=== PATIENT | male | born 1990 | race Caucasian/White ===

== ENCOUNTER 2020-03-17 21:14 | Emergency (ER) | payer OTHER, SELFPAY ==
--- NOTE | ~2020-03-17 | CT_ITS ---
EXAMINATION: CT abdomen pelvis wo con DATE: 03/17/2020 21:57 INDICATION: Right flank pain TECHNIQUE: Computed tomography (CT) of the abdomen and pelvis was performed without intravenous contr ast. Automated exposure control and iterative reconstruction technique were employed. The dose-length product was 645.23 mGy-cm. COMPARISON: None FINDINGS: Lung bases are clear. Heart size is normal. No pericardial or pleural effusion. Liver, gallbladder, s pleen, pancreas, bilateral adrenal glands and kidneys are normal. 2 mm stone at the distal left urete r approximately 1 cm from the ureterovesicular junction. No hydronephrosis. Bladder is normal. There is mild colonic diverticulosis with a sigmoid predominance. There is no adjacent inflammatory change to suggest diverticulitis. Small bowel and appendix are normal. No free intraperitoneal gas or fluid. No pathologically enlarged abdominal or pelvic lymphadenopathy. Bones are unremarkable. IMPRESSION: 1. 2 mm stone at the distal right ureter with no hydronephrosis. Reviewed, dictated and finalized at location A.
[2020-03-17 21:16] VITALS: BP 142/80; PULSE 80; RESP 20; TEMP 36.8; O2SAT 98
--- NOTE | 2020-03-17 21:57 | ED.ABDPAIN ---
HPI - Abdominal Pain General Chief Complaint: Abdominal Pain Stated Complaint: kidney pain Time Seen by Provider: 03/17/20 21:20 History of Present Illness HPI narrative: Patient is a 29-year-old male who presents ER with sudden onset right-sided flank pain. Has history of kidney stone 6 years ago. Pain was sharp and radiating to his right testicle. It gave him some nausea as well. He is taken ibuprofen and pain has subsided. No hematuria dysuria. Related Data Allergies Allergy/AdvReac Type Severity Reaction Status Date / Time No Known Allergies Allergy Verified 03/17/20 22:49 Review of Systems Review of Systems: All systems reviewed & are unremarkable except as noted in HPI and below Constitutional: Constitutional: Denies chills and Denies fever(s) Gastrointestinal: Gastrointestinal: Reports abdominal pain, Reports nausea and Reports vomiting Comments: Flank pain Genitourinary: Genitourinary: Denies dysuria, Reports testicular pain and Denies urinary frequency PMFSH Past Medical History Medical History (Updated 03/17/20 @ 22:49 by Nathan García MD) Kidney stones Surgical History Surgical History (Updated 03/17/20 @ 22:02 by Nathan García MD) No pertinent past surgical history Social History Social History (Updated 03/17/20 @ 22:02 by Nathan García MD) Smoking status: Never smoker Gender identity (if verbalized by the patient): Male Exam Narrative: Exam Narrative: GENERAL: Well-appearing, well-nourished, and in no acute distress. HEAD: Normocephalic, atraumatic. CHEST: Clear to auscultation. No respiratory distress. HEART: Regular rate and rhythm. Normal peripheral pulses. ABDOMEN: Soft, nontender, nondistended, no CVA tenderness. EXTREMITIES: Normal range of motion. No edema. NEURO: Alert and oriented x3. PSYCH: Normal mood and affect. Course Course Emergency Course: Informed of results. Resting comfortably. Discharge home with supportive therapy. Vital Signs Vital signs: Vital Signs Temperature 98.3 F 03/17/20 21:16 Pulse Rate 80 03/17/20 21:16 Respiratory Rate 20 03/17/20 21:16 Blood Pressure 142/80 H 03/17/20 21:16 Pulse Oximetry 98 03/17/20 21:16 Temperature 99.1 F 03/17/20 22:25 Pulse Rate 78 03/17/20 22:25 Respiratory Rate 18 03/17/20 22:25 Blood Pressure 142/91 H 03/17/20 22:25 Pulse Oximetry 100 03/17/20 22:25 MDM - Abdominal Pain Lab Data Labs: Lab Results 03/17/20 Range/Units 22:34 Urine Color Pending Urine Appearance Pending Urine pH Pending Ur Specific [place] Pending Urine Protein Pending Urine Glucose (UA) Pending Urine Ketones Pending Ur Blood (Man) Pending Urine Nitrate Pending Urine Bilirubin Pending Urine Urobilinogen Pending Leukocyte Esterase Rfl Pending Imaging Data Radiologist's impression: ITS Impressions Abdomen/Pelvis CT 03/17/20 22:22 IMPRESSION: 1. 2 mm stone at the distal right ureter with no hydronephrosis. Discharge Plan Discharge Clinical Impression: Ureterolithiasis Patient Disposition: Home, Self-Care Condition: Stable Instructions: Kidney Stones (ED), How to Strain Your Urine (ED) Additional Instructions: You are passing a 2 mm kidney stone. It should pass without issue if you hydrate yourself. Take [place] as needed for pain and Zofran as needed for nausea and vomiting. Return the ER if you cannot control your pain, you cannot keep down food or water, or you have any additional concerns. Prescriptions: New hydrocodone-acetaminophen 5-325 mg tablet 1 tablet PO Q6H PRN (Reason: pain) Qty: 8 RF: 0 ondansetron 4 mg tablet,disintegrating 4 mg PO Q6H PRN (Reason: nausea and vomiting) Qty: 5 RF: 0 Follow-up/Referrals: [facility] [Primary Care Provider] -
[2020-03-17 22:25] VITALS: BP 142/91; PULSE 78; RESP 18; TEMP 37.3; O2SAT 100
--- NOTE | 2020-03-17 22:29 | PC.NURSE ---
Patient up to the bathroom to provide urine at this time.
[2020-03-17 22:59] LABS: Add Urine Microscopic? YES; Appearance Urine Clear (Clear); Bilirubin Urine Negative (Negative); Blood Urine 2+ (Negative); Color Urine Yellow (Yellow); Glucose Urine UA Negative (Negative); Ketones Urine Negative (Negative); Leukocyte Esterase Ur Negative LEU/UL (Negative); Mucus Urine Rare /lpf; Nitrate Urine Negative (Negative); Protein Urine Negative (Negative); RBC Urine 0-2 /hpf (0-2); Specific Grav Ur 1.016 (1.001-1.035); Squamous Epithelial Cell Urine Rare /hpf (Few); Urobilinogen Urine Negative mg/dL (<2.0); WBC Urine 0-3 /hpf
[2020-03-17 23:09] VITALS: BP 140/85; PULSE 79; RESP 16; TEMP 36.9; O2SAT 99
== END 2020-03-17 23:09 | disposition home or self-care (01) ==
PROVIDERS: Emergency Provider Emergency Medicine
DX: N20.1 Calculus of ureter (principal); Z87.442 Personal history of urinary calculi
CPT/HCPCS: 74176; 81001; 99284

== ENCOUNTER 2020-04-16 03:29 | Emergency (ER) | payer OTHER, SELFPAY ==
[2020-04-16] VITALS (21 sets, daily range): BP systolic 100–138; BP diastolic 70–91; PULSE 58–71; RESP 11–19; TEMP 36.9; O2SAT 96–100
--- NOTE | ~2020-04-16 | XR_ITS ---
XR chest 2V DATE: 04/16/2020 04:48 INDICATION: Left chest pain, shortness of breath for 2 to 3 hours TECHNIQUE: PA and lateral views COMPARISON: None FINDINGS: Normal heart size. No hilar or mediastinal enlargement. No pulmonary infiltrate or consolid ation, pleural effusion or pulmonary vascular congestion or pneumothorax. Included skeletal structures are unremarkable. IMPRESSION: Negative chest Reviewed, dictated and finalized at location A. IMPRESSION: Negative chest
--- NOTE | 2020-04-16 03:44 | ECG_ITS ---
Measurements Intervals [place] Rate: 69 P: 51 VT: 182 QRS: 15 QRSD: 84 T: 18 QT: 376 QTc: 403 Interpretive Statements SINUS RHYTHM NORMAL ECG Electronically Signed On 04-16-2020 8:06:19 CDT by Ulises Aviles D.O.
[2020-04-16] MEDS: KETOROLAC 30 MG/ML VIAL (*BKC) IV PUSH (03:52)
--- NOTE | 2020-04-16 03:53 | ED.GENADULT ---
HPI - General Adult General Chief complaint: Chest Pain Stated complaint: CP WITH BREATHING Time Seen by Provider: 04/16/20 03:39 Source: patient Mode of arrival: EMS Limitations: no limitations History of Present Illness HPI narrative: This patient is 29 year old male who presents for evaluation right sternal chest pain. He states he developed right sternal pain 1 hour ago. His pain gradually worsened so he called 911. His pain is worse with breathing and sitting up. He denies any trauma. HE states he was sob initially, but that is likely anxiety. He also reports feeling of heart racing. Denies fever, cough. Radiation: non-radiation Relieving factors: none Related Data Home Medications Medication Instructions Recorded Confirmed No Home Medications 04/16/20 04/16/20 Allergies Allergy/AdvReac Type Severity Reaction Status Date / Time No Known Allergies Allergy Verified 04/16/20 03:50 Review of Systems Review of Systems: All systems reviewed & are unremarkable except as noted in HPI and below Constitutional: Constitutional: Reports chills and Denies fever(s) Cardiovascular: Cardiovascular: Reports chest pain and Reports rapid heart rate Respiratory: Respiratory: Denies cough, Reports dyspnea and Denies wheezing Gastrointestinal: Gastrointestinal: Denies abdominal pain, Denies nausea and Denies vomiting PMFSH Past Medical History Medical History (Updated 04/16/20 @ 06:41 by Neelam Land MD) Kidney stones Surgical History Surgical History (Updated 03/17/20 @ 22:02 by Nathan García MD) No pertinent past surgical history Social History Social History (Updated 03/17/20 @ 22:02 by Nathan García MD) Smoking status: Never smoker Gender identity (if verbalized by the patient): Male Exam Narrative: Exam Narrative: GENERAL: Well-appearing, well-nourished, and in no acute distress. HEAD: Normocephalic, atraumatic EYES: PERRLA and EOMI, conjunctiva clear without discharge THROAT:Mucous membranes moist, Oropharynx normal without erythema, exudate, peritonsillar swelling or fluctuance NECK: Supple, without lymphadenopathy or mass RESPIRATORY: No respiratory distress, Airway patent, Respirations non-labored, Clear to auscultation without rales, rhonchi or wheeze HEART: Regular rate and rhythm. No murmur heard. Normal peripheral pulses. ABDOMEN: Soft, nontender, nondistended, normal active bowel sounds. No masses. No rebound or guarding, No organomegaly. EXTREMITIES: No edema, normal strength with full range of motion. SKIN: Warm, dry, normal color without rash NEURO: Alert and oriented x3. CN 2-12 grossly intact. No focal deficits. PSYCH: Normal mood and affect. Course Reevaluation(s) Reevaluation #1: I Discussed evaluation is unremarkable. He is ready for discharge. Date: 04/16/20 Time: 07:07 Vital Signs Vital signs: Vital Signs Temperature 98.5 F 04/16/20 03:28 Pulse Rate 67 04/16/20 03:28 Respiratory Rate 14 04/16/20 03:28 Blood Pressure 138/91 H 04/16/20 03:28 Pulse Oximetry 100 04/16/20 03:28 Temperature 98.5 F 04/16/20 03:28 Pulse Rate 61 04/16/20 06:30 Respiratory Rate 12 04/16/20 06:30 Blood Pressure 128/86 04/16/20 06:00 Pulse Oximetry 99 04/16/20 06:30 Medical Decision Making Vital Signs Vital Signs: Vital Signs Temperature 98.5 F 04/16/20 03:28 Pulse Rate 67 04/16/20 03:28 Respiratory Rate 14 04/16/20 03:28 Blood Pressure 138/91 H 04/16/20 03:28 Pulse Oximetry 100 04/16/20 03:28 Temperature 98.5 F 04/16/20 03:28 Pulse Rate 61 04/16/20 06:30 Respiratory Rate 12 04/16/20 06:30 Blood Pressure 128/86 04/16/20 06:00 Pulse Oximetry 99 04/16/20 06:30 Lab Data Lab results reviewed: Yes I reviewed the patient's lab results. Result diagrams: 04/16/20 03:55 04/16/20 03:55 Labs: Lab Results 04/16/20 04/16/20 04/16/20 Range/Units 03:55 03:55 03:55 W
[2020-04-16 04:03] LABS: Basophils Percent Auto 0.3 % (0.2-1.2); Eosinophils Absolute Auto 0.1 K/mm3 (0-0.3); Eosinophils Percent Auto 0.7 % (0-4.4); Hematocrit 45.3 % (42.0-52.0); Hemoglobin 14.8 g/dL (14.0-18.0); Immature Granulocyte Absolute 0.03 K/mm3 (0.00-0.031); Immature Granulocyte Percent A 0.4 % (0-0.5); Lymphocytes Percent Auto 25.3 % (18.3-44.2); Mean Corpuscular HGB Conc 32.7 g/dl (32-36); Mean Corpuscular Hemoglobin 28.7 pg (26-34); Mean Corpuscular Volume 87.8 fl (80-100); Mean Platelet Volume 11.6 fl (7.4-10.4); Monocytes Absolute Auto 0.5 K/mm3 (0.1-0.6); Monocytes Percent Auto 6.5 % (2.6-8.5); Neutrophils Percent Auto 66.8 % (45.5-73.1); Platelet Count Result 182 k/mm3 (150-375); Red Blood Count 5.16 M/mm3 (4.6-6.20); Red Cell Distribution Width 12.5 % (11.5-14.5); White Blood Count 7.5 K/mm3 (4.5-10.0)
[2020-04-16 04:14] LABS: INR 1.2; Prothrombin Time 14.4 Seconds (11.1-14.7)
[2020-04-16 04:15] LABS: Anion Gap 9 mmol/L (8-16); Blood Urea Nitrogen 9 mg/dL (9-20); Calcium 9.1 mg/dL (8.4-10.2); Carbon Dioxide 24 mmol/L (22-30); Chloride 104 mmol/L (98-107); Estimated CRCL calculation 120 ml/min; Estimated Glomerular Filt Rate > 60; Glucose 102 mg/dL (75-110); Partial Thromboplastin Time 35.5 SECONDS (22.3-36.8); Potassium 3.6 mmol/L (3.4-5.0); Sodium 137 mmol/L (137-145)
[2020-04-16 04:24] LABS: D Dimer 0.27 ug/mL (<0.48)
[2020-04-16 04:27] LABS: Troponin I < 0.012 ng/mL (0.000-0.034)
[2020-04-16 06:59] LABS: Troponin I < 0.012 ng/mL (0.000-0.034)
== END 2020-04-16 07:18 | disposition home or self-care (01) ==
PROVIDERS: Emergency Provider General Practice; PCP Emergency Medicine
DX: R07.89 Other chest pain (principal); Z87.442 Personal history of urinary calculi
CPT/HCPCS: 36415; 71046; 80048; 84484; 85025; 85380; 85610; 85730; 93005; 96374; 99284; J1885

== ENCOUNTER 2020-04-24 10:38 | Outpatient (CLI) | payer OTHER, SELFPAY ==
--- NOTE | ~2020-04-24 | US_ITS ---
EXAMINATION: US renal BI EXAM DATE: 04/24/2020 11:34 INDICATION: Right flank pain. 2 mm right distal ureteral stone on CT. TECHNIQUE: Multiple grayscale and Doppler images of the kidneys were obtained (by a technologist who performed the scan) and subsequently reviewed. There is no prior study for comparison. FINDINGS: Right kidney: There is normal contour and echogenicity. It measures 9.4 x 4.7 x 5.1 centimeters. Th ere are no focal renal lesions identified. There is no hydronephrosis. Left kidney: There is normal contour and echogenicity. It measures 10.7 x 5.3 x 4.9 centimeters. Th ere are no focal renal lesions identified. There is no hydronephrosis. Bladder unremarkable. IMPRESSION: Sonographically unremarkable kidneys. Reviewed, dictated and finalized at location A.
--- NOTE | ~2020-04-24 | US_ITS ---
EXAMINATION: US scrotum doppler EXAM DATE: 04/24/2020 11:50 INDICATION: Right testicular pain, right scrotal mass. TECHNIQUE: Multiple grayscale and Doppler images of the testicles and scrotum were obtained bilateral ly. There is no prior study for comparison. FINDINGS: Right testicle measures 4.5 x 2.8 x 2.9 cm and is morphologically normal. Low resistance Doppler meghan w confirmed. The epididymis is unremarkable. There is no hydrocele or varicocele. Left testicle measures 4.7 x 2.8 x 3.4. cm and is morphologically normal. Low resistance Doppler meghan w confirmed. The epididymis is unremarkable. There is no hydrocele or varicocele. IMPRESSION: 1. Unremarkable testicular/scrotal ultrasound exam. Reviewed, dictated and finalized at location A.
== END 2020-04-24 10:39 | disposition home or self-care (01) ==
PROVIDERS: PCP Emergency Medicine; Visit Provider Emergency Medicine
DX: N50.819 Testicular pain, unspecified (principal)
CPT/HCPCS: 76775; 76870; 93976

== ENCOUNTER 2020-06-05 16:56 | Outpatient (CLI) | payer OTHER, SELFPAY ==
--- NOTE | ~2020-06-05 | XR_ITS ---
EXAMINATION: XR abdomen/kub 1V DATE: 06/05/2020 17:26 INDICATION: Hematuria. TECHNIQUE: A supine view of the abdomen on 2 radiographs was obtained. COMPARISON: CT dated 03/17/2020 FINDINGS: No stones identified in the abdomen or pelvis. The previously seen 2 mm stone at the distalmost right ureter is not visualized and are too small to be seen on plain radiographs or has passed. Normal bow el gas pattern. Lung bases are clear. Bones are unremarkable. IMPRESSION: 1. Normal study. No evident urolithiasis. Reviewed, dictated and finalized at location A. ECT MANAGER INDUSTRIAL
--- NOTE | ~2020-06-05 | US_ITS ---
EXAMINATION: US thyroid DATE: 06/05/2020 17:25 INDICATION: Thyroid/neck mass. TECHNIQUE: Multiple ultrasound images of the thyroid were obtained. COMPARISON: None. FINDINGS: The right thyroid lobe measures 4.7 x 2.0 x 1.6 cm. The left thyroid lobe measures 4.0 x 1.8 x 1.3 c m. No discrete nodules identified. There is normal echotexture, echogenicity and vascular flow throu ghout the thyroid gland. No pathologically enlarged lymphadenopathy, abnormal masses or fluid collect ions in the parathyroidal soft tissues. IMPRESSION: 1. Normal thyroid ultrasound. Reviewed, dictated and finalized at location A. NGUAL RECEPTIONIST
[2020-06-05 18:34] LABS: Hemoglobin 15.3 g/dL (14.0-18.0); Mean Corpuscular HGB Conc 32.6 g/dl (32-36); Platelet Count Result 207 k/mm3 (150-375); Red Blood Count 5.28 M/mm3 (4.6-6.20); Red Cell Distribution Width 12.9 % (11.5-14.5); White Blood Count 7.7 K/mm3 (4.5-10.0)
[2020-06-05 18:54] LABS: Add Urine Microscopic? YES; Appearance Urine Clear (Clear); Bacteria Urine Trace /hpf; Bilirubin Urine Negative (Negative); Blood Urine 2+ (Negative); Color Urine Straw (Yellow); Glucose Urine UA Negative (Negative); Ketones Urine Negative (Negative); Leukocyte Esterase Ur Negative LEU/UL (NEGATIVE); Mucus Urine Rare /lpf; Nitrate Urine Negative (Negative); Protein Urine Negative (Negative); Specific Grav Ur 1.009 (1.001-1.035); Squamous Epithelial Cell Urine Rare /hpf (Few); Urobilinogen Urine Negative mg/dL (<2.0)
[2020-06-05 19:34] LABS: HIV 1/2 Ab P24 Ag Result Negative (Negative)
[2020-06-06 07:58] LABS: Rapid Plasma Reagin Non-Reactive (NonReactive)
== END 2020-06-05 16:57 | disposition home or self-care (01) ==
LOC: ANHIMG 16:57
PROVIDERS: PCP Emergency Medicine; Visit Provider Emergency Medicine
DX: R31.9 Hematuria, unspecified (principal); R22.1 Localized swelling, mass and lump, neck
CPT/HCPCS: 36415; 74018; 76536; 81001; 85027; 86592; 86703; 87491; 87591; G0432

== ENCOUNTER 2020-06-12 17:06 | Outpatient (CLI) | payer OTHER, SELFPAY ==
--- NOTE | ~2020-06-12 | CT_ITS ---
EXAMINATION: CT soft tissue neck wo con DATE: 06/12/2020 17:33 INDICATION: Painful right neck mass. TECHNIQUE: Computed tomography (CT) of the neck was performed without intravenous contrast. Automated exposure control and iterative reconstruction technique were employed. The dose-length product was 4 90.38 mGy-cm. COMPARISON: Thyroid ultrasound dated 06/05/2020 FINDINGS: Thyroid gland is unremarkable. Submandibular and parotid glands are normal and symmetric. There are scattered normal-sized lymph nodes in the neck, no lymphadenopathy. No masses or abnormal fluid col lections identified. Small calcification at the left lingual tonsil. Orbits are unremarkable. Visuali zed sinuses and mastoid aircells are well aerated. Visualized airway and lung apices are normal. Sup erior mediastinum is unremarkable. Bones are unremarkable. IMPRESSION: 1. Normal neck CT. No pathologically enlarged cervical lymphadenopathy or other abnormal masses or fl uid collections. Reviewed, dictated and finalized at [facility]. LE ELECTRONICS INSTALLER IMPRESSION: 1. Normal neck CT. No pathologically enlarged cervical lymphadenopathy or other abnormal masses or fluid collections.
== END 2020-06-12 17:07 | disposition home or self-care (01) ==
PROVIDERS: PCP Emergency Medicine; Visit Provider Emergency Medicine
DX: M54.2 Cervicalgia (principal)
CPT/HCPCS: 70490

== ENCOUNTER 2020-06-15 15:18 | Outpatient (NON) | payer OTHER, SELFPAY ==
[2020-06-17 06:47] LABS: SARS-CoV-2 RNA PCR Negative
== END 2020-06-15 15:19 ==
LOC: ANHCOVIDDT 15:20
PROVIDERS: PCP Emergency Medicine; Visit Provider Emergency Medicine
DX: Z20.828 Contact with and (suspected) exposure to other viral communicable diseases (principal)
CPT/HCPCS: 87635; C9803; U0003